=== PATIENT | female | born 1955 | race Two or more races ===

== ENCOUNTER 2017-11-30 08:49 | Observation (INO) | payer OTHER ==
--- NOTE | 2017-11-30 09:14 | RAD ---
Indication: Chest pain. Single frontal view of the chest performed at 0900 hours was reviewed. No prior study is available for comparison. No mediastinal shift is noted. Heart is of normal size and configuration. Lung villagomez appear clear. IMPRESSION: NO ACTIVE CARDIOPULMONARY DISEASE IS NOTED.
[2017-11-30 09:20] LABS: ABS Basophils 0.1 10^3/ul (0-0.2); ABS Eosinophils 0.2 10^3/ul (0-0.6); ABS Lymphocytes 1.7 10^3/ul (1.0-4.8); ABS Monocytes 0.3 10^3/ul (0-0.8); ABS Neutrophils 3.1 10^3/ul (1.5-7.7); ABS Nucleated RBC 0 10^3/ul; Eosinophil % 3.6 % (0-6); Hematocrit 38 % (35-47); Hemoglobin 13.1 g/dl (12.0-16.0); Lymphocyte % 31.6 % (25-47); Mean Corpuscular HGB Conc 34 g/dl (31-36); Mean Corpuscular Hemoglobin 30 pg (27-31); Mean Corpuscular Volume 87 fL (80-97); Mean Platelet Volume 8 um3 (7.4-10.4); Nucleated Red Blood Cells % 0; Platelet Count 281 10^3/ul (150-450); Red Blood Count 4.38 10^6/ul (4.0-5.4); Red Cell Distribution Width 13 % (10.5-15); White Blood Count 5.3 10^3/ul (3.5-10.8)
[2017-11-30 09:37] LABS: EGFR Non-African American 85.4 (>60)
[2017-11-30] MEDS ORDERED: Ondansetron INJ* 2 MG/ML VIAL IV PRN (13:22)
[2017-11-30] MEDS ORDERED: Acetaminophen TAB* 325 MG PO PRN (13:22)
[2017-11-30] MEDS: Heparin VIAL(*) 5000 UNITS/ML VIAL (FIVE THOUSAND) SUBCUT SCH ×2 (14:14→21:27)
[2017-11-30] MEDS ORDERED: NS 0.9% 500 ML* 500 ML IV ONE (15:45)
[2017-11-30] MEDS ORDERED: NS 0.9% 1000 ML* 500 ML IV ONE (16:30)
--- NOTE | 2017-11-30 21:27 | HP ---
CC: Dr. Alfaro * HISTORY AND PHYSICAL: DATE OF ADMISSION: 11/30/17 PRIMARY CARE PROVIDER: Dr. Alfaro. ATTENDING PHYSICIAN WHILE IN THE HOSPITAL: Eleazar Wang MD * (report dictated by Rajinder Bates NP). CHIEF COMPLAINT: Chest pain. HISTORY OF PRESENT ILLNESS: Mrs. Merlos is a 62-year-old female patient, she carries a history of osteoporosis, question of hyperlipidemia, she is no longer on medications, but she was on Lipitor at one point. She comes in to the ED today stating that intermittently for the last 3 weeks she has had chest discomfort. She says that she has been having pain, it has been non- exertional. It is mostly in the top part of her chest. Yesterday it did go down into her left arm and she did have tightness, but it was reproducible. She saw her primary last week. They felt that it could be musculoskeletal because she was able to reproduce the pain. The patient apparently had an outpatient chest x-ray which was presumably normal, but she was told that if she were to have the discomfort again that she should to go to the ER. Last night she had discomfort, tightness in the chest going down the arm. No associated nausea or shortness of breath. She says that she did feel lightheaded. Her checked her blood pressure, it was elevated at 167/ 107. She denied having any headache or visual disturbances or weakness to one side. There has been no recent cough, fevers, chills. No recent travel, leg pain or calf tenderness. The patient was concerned and went to the clinic today and they referred her to the hospital. She is not having chest discomfort now. She says she is feeling better. There has been no recent fevers chills, vomiting or diarrhea, but there was concern because there is a family history of heart disease, her brother in his 50s. The discomfort has been intermittent for the last 3 weeks and at times constant. She came in to the ED today. We were asked to evaluate for the chest pain. PAST MEDICAL HISTORY: Significant for: 1. Osteoporosis. 2. Laparoscopic cholecystectomy. HOME MEDICATIONS: According to her include, 1. Aspirin 162 mg daily. 2. She takes calcium 1 tablet daily. 3. Vitamin D 1 tablet daily. ALLERGIES TO MEDICATIONS: Include no known drug allergies. FAMILY HISTORY: Mother had a history of CVA. Father had emphysema. Brother at the age of 53 of an VT. SOCIAL HISTORY: The patient does not smoke, does not drink. 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 Surrogate decision maker is her . REVIEW OF SYSTEMS: There is no documented fever. She denied having any significant weight change. There was no double vision. She denies having any ear discharge. There is no rhinorrhea. There is no sore throat. No thyroid enlargement. She did admit to having chest pain as per my HPI. There is no orthopnea. No nocturnal dyspnea. There was no abdominal pain. There was no nausea, no vomiting. There is no dysuria. There is no frequency. There was no seizure, no loss of consciousness, no pruritus. Review of 14 systems completed, all others negative. PHYSICAL EXAMINATION GENERAL: At this time, Mrs. Merlos is a 62-year-old female patient, she is sitting in the ED stretcher. She does not appear to be in any acute distress. VITAL SIGNS: Blood pressure 145/84, pulse 69, respirations 18, O2 sat 98%, temperature 97. HEENT: Head atraumatic. Eyes: Sclerae anicteric and not pale. NECK: Supple. Throat: Oral mucosa appears to be moist. No oropharyngeal erythema. LUNGS: Clear to auscultation. No wheezes, rales or rhonchi. HEART: Sounds S1, S2. Regular rate and rhythm. No murmurs, rubs or gallops. ABDOMEN: Soft, flat. Nontender. Bowel sounds are present. EXTREMITIES: Pulses 2+ throughout. Moving all 4 extremities with 5/5 strength. NEUROLOGIC: The patient is awake, alert, oriented x3. Tongue midline. Manager Background are equal. No gross focal deficits. SKIN: Intact. LABORATORY DATA/DIAGNOSTIC STUDIES: WBC 5.3, RBC of 4.38, hemoglobin 13.1, hematocrit 38, platelet count of 281,000. D-dimer less than 200. Sodium 136, potassium 3.8, chloride 105, bicarb 26, BUN 15, creatinine of 0.70, glucose 102 , calcium 9.2, total bili 0.3, AST 18, ALT 16, alk-phos 76. Troponin 0, repeat troponin 0. Albumin 4.2. The patient did have a chest x-ray obtained today, which revealed no active cardiopulmonary disease. There was an EKG obtained today, which showed a normal sinus rhythm, rate of 72, no ST-elevation, no T-wave inversions were noted. Old medical records reviewed. ASSESSMENT AND PLAN: Mrs. Merlos is a 62-year-old female patient coming into the ED today with complaints of chest discomfort, which has been intermittent over the last 3 weeks, now it is more constant. We were asked to evaluate for admission. She will be admitted to the hospital under observation status for: 1. Chest pain: At this point, the pain does sound atypical, but at this point it has been intermittent for the last 3 weeks. It is concerning because now it is going into her left arm. I do think that we should admit her under observation, continue the aspirin. Lipid panel, A1c, third troponin, EKG in the morning and do a stress test and we will continue to follow. 2. Osteoporosis: Follow with her primary. 3. DVT prophylaxis: Heparin subcu has been ordered. 4. Code status: Full code. 5. Fluids, electrolytes, and nutrition: Heart healthy diet, then n.p.o. after midnight. TIME SPENT: Time spent on consult was 60 minutes, greater than half of the time was spent [id number] with the patient, obtaining my history and physical , the other half of the time was spent going over the plan of care with the patient and implementing the plan of care. I did discuss plan of care with my attending, Dr. Wang, who is in agreement. RAJINDER BATES, CHING [id number]/[facility] #: [id number] ZACH
--- NOTE | 2017-11-30 21:59 | ED ---
Griffin Krishna Tiffany, scribed for Estela Moser MD on 11/30/17 at 0924 . HPI Chest Pain - HPI Summary HPI Summary: The patient is a 62 year old F presenting to [facility] accompanied by with a chief complaint of upper chest pain since three weeks ago. The pain is described as an ache and radiates across the chest and to the left shoulder. The patient rates the pain 6/10 in severity. Symptoms aggravated by palpation. Symptoms alleviated by nothing. Patient reports intermittent episodes of dizziness. Patient denies shortness of breath, back pain and left shoulder pain. Patient reports that her blood pressure was high yesterday and that she felt dizzy. Patient has never had a stress test done. - History of Current Complaint Chief Complaint: EDChestPainROMI Time Seen by Provider: 11/30/17 09:00 Hx Obtained From: Patient Onset/Duration: Started Weeks Ago - 3 weeks, Still Present Timing: Constant Current Severity: Moderate Pain Intensity: 6 Pain Scale Used: 0-10 Numeric Chest Pain Location: Upper Sternal Chest Pain Radiates: Yes Chest Pain Radiates To:: Shoulder - Left shoulder Character: Dull/Aching Aggravating Factor(s): Other: - palpation Alleviating Factor(s): Nothing Associated Signs and Symptoms: Positive: Negative - shortness of breath, back pain and left shoulder pain., Dizziness - Intermittent episodes - Allergy/Home Medications Allergies/Adverse Reactions: Allergies Allergy/AdvReac Type Severity Reaction Status Date / Time No Known Allergies Allergy Verified 11/30/17 09:57 Home Medications: Home Medications Aspirin EC Low Dose* [Ecotrin EC Low Dose 81 MG*] 162 mg PO DAILY 11/30/17 [ History Confirmed 11/30/17] PMH/Surg Hx/FS Hx/Imm Hx Previously Healthy: Yes Endocrine/Hematology History: Denies: Hx Diabetes Cardiovascular History: Denies: Hx Hypertension - Surgical History Surgery Procedure, Year, and Place: Gallbladder removal Infectious Disease History: No Infectious Disease History: Denies: Traveled Outside the [place] in Last 30 Days - Family History Known Family History: Positive: Cardiac Disease - Brother passed at 53 from heart attack, Other - Mother passed from stroke - Social History Occupation: Employed Full-time - [employer] Lives: With Family - With Alcohol Use: None Hx Substance Use: No Substance Use Type: Reports: None Hx Tobacco Use: No Smoking Status (MU): Never Smoked Tobacco Review of Systems Positive: Chest Pain Negative: Shortness Of Breath Musculoskeletal: Negative - Back pain, left shoulder pain Neurological: Other - Intermittent episodes of dizziness All Other Systems Reviewed And Are Negative: Yes Physical Exam - Summary Physical Exam Summary: Appearance: Ill-appearing, moderate pain distress, Well-nourished Skin: Warm, color reflects adequate perfusion Head: Normal Head/Face inspection Eyes: Conjunctiva clear ENT: Normal inspection Neck: Supple, no nodes, no JVD. Respiratory: Lungs clear, Normal breath sounds, no respiratory distress Cardio: RRR, No murmur, pulses normal, brisk capillary refill Abdomen: soft, nontender Bowel sounds: present Musculoskeletal: Strength Intact/ ROM intact. No calf tenderness. No edema. Neuro: Alert, muscle tone normal, facial symmetry, speech normal, sensory/motor intact Psychological: Normal Triage Information Reviewed: Yes Vital Signs On Initial Exam: Initial Vitals Temp Pulse Resp BP Pulse Ox 97 F 72 16 152/89 100 11/30/17 08:50 11/30/17 08:50 11/30/17 08:50 11/30/17 08:50 11/30/17 08:50 Vital Signs Reviewed: Yes Diagnostics - Vital Signs Vital Signs Temp Pulse Resp BP Pulse Ox 11/30/17 08:50 97 F 72 16 152/89 100 - Laboratory Lab Results: Lab Results 11/30/17 11/30/17 11/30/17 Range/Units 09:09 09:09 09:09 WBC 5.3 (3.5-10.8) 10^3/ul RBC 4.38 (4.0-5.4) 10^6/ul Hgb 13.1 (12.0-16.0) g/dl Hct 38 (35-47) % MCV 87 (80-97) fL MCH 30 (27-31) pg MCHC 34 (31-36) g/dl RDW 13 (10.5-15) % Plt Count 281 (150-450) 10^3/ul MPV 8 (7.4-10.4) um3 Neut % (Auto) 57.7 (38-83) % Lymph % (Auto) 31.6 (25-47) % Hudson % (Auto) 5.9 (1-9) % Eos % (Auto) 3.6 (0-6) % Baso % (Auto) 1.2 (0-2) % Absolute Neuts (auto) 3.1 (1.5-7.7) 10^3/ul Absolute Lymphs (auto) 1.7 (1.0-4.8) 10^3/ul Absolute Monos (auto) 0.3 (0-0.8) 10^3/ul Absolute Eos (auto) 0.2 (0-0.6) 10^3/ul Absolute Basos (auto) 0.1 (0-0.2) 10^3/ul Absolute Nucleated RBC 0 10^3/ul Nucleated RBC % 0 ESR 42 H (0-30) mm/Hr D-Dimer, Quantitative < 200 (Less Than 230) ng/mL Sodium 136 (133-145) mmol/L Potassium 3.8 (3.5-5.0) mmol/L Chloride 105 (101-111) mmol/L Carbon Dioxide 26 (22-32) mmol/L Anion Gap 5 (2-11) mmol/L BUN 15 (6-24) mg/dL Creatinine 0.70 (0.51-0.95) mg/dL Est GFR ( Amer) 109.8 (>60) Est GFR (Non-Af Amer) 85.4 (>60) BUN/Creatinine Ratio 21.4 H (8-20) Glucose 102 H (70-100) mg/dL Calcium 9.2 (8.6-10.3) mg/dL Total Bilirubin 0.30 (0.2-1.0) mg/dL AST 18 (13-39) U/L ALT 16 (7-52) U/L Alkaline Phosphatase 76 (34-104) U/L Troponin I 0.00 (<0.04) ng/mL C-Reactive Protein 2.22 (< 5.00) mg/L Total Protein 7.6 (6.4-8.9) g/dL Albumin 4.2 (3.2-5.2) g/dL Globulin 3.4 (2-4) g/dL Albumin/Globulin Ratio 1.2 (1-3) 11/30/17 Range/Units 11:51 WBC (3.5-10.8) 10^3/ul RBC (4.0-5.4) 10^6/ul Hgb (12.0-16.0) g/dl Hct (35-47) % MCV (80-97) fL MCH (27-31) pg MCHC (31-36) g/dl RDW (10.5-15) % Plt Count (150-450) 10^3/ul MPV (7.4-10.4) um3 Neut % (Auto) (38-83) % Lymph % (Auto) (25-47) % Hudson % (Auto) (1-9) % Eos % (Auto) (0-6) % Baso % (Auto) (0-2) % Absolute Neuts (auto) (1.5-7.7) 10^3/ul Absolute Lymphs (auto) (1.0-4.8) 10^3/ul Absolute Monos (auto) (0-0.8) 10^3/ul Absolute Eos (auto) (0-0.6) 10^3/ul Absolute Basos (auto) (0-0.2) 10^3/ul Absolute Nucleated RBC 10^3/ul Nucleated RBC % ESR (0-30) mm/Hr D-Dimer, Quantitative (Less Than 230) ng/mL Sodium (133-145) mmol/L Potassium (3.5-5.0) mmol/L Chloride (101-111) mmol/L Carbon Dioxide (22-32) mmol/L Anion Gap (2-11) mmol/L BUN (6-24) mg/dL Creatinine (0.51-0.95) mg/dL Est GFR ( Amer) (>60) Est GFR (Non-Af Amer) (>60) BUN/Creatinine Ratio (8-20) Glucose (70-100) mg/dL Calcium (8.6-10.3) mg/dL Total Bilirubin (0.2-1.0) mg/dL AST (13-39) U/L ALT (7-52) U/L Alkaline Phosphatase (34-104) U/L Troponin I 0.00 (<0.04) ng/mL C-Reactive Protein (< 5.00) mg/L Total Protein (6.4-8.9) g/dL Albumin (3.2-5.2) g/dL Globulin (2-4) g/dL Albumin/Globulin Ratio (1-3) Result Diagrams: 11/30/17 09:09 11/30/17 09:09 Lab Statement: Any lab studies that have been ordered have been reviewed, and results considered in the medical decision making process. - Radiology CXR Radiology Interpretation Completed By: Radiologist - No active cardiopulmonary disease is noted. ED physician has reviewed this radiology report. - EKG 08:49 Cardiac Rate: NL EKG Rhythm: Sinus Rhythm - [address] Segment: Non-Specific Ectopy: None EKG Interpretation: nml AVIVCT, nml QTc, and nml axis EKG Comparison: Other - No priors to compare to. Chest Pain Course/Dx - Course Course Of Treatment: High blood pressure noted. Patient medications reviewed this visit. Normal EKG. No prior to compare. Normal CXR. Normal labs. Dr. Wang ( hospitalist) agreed to admit patient at 12:02. Patient will be admitted to [facility]. The patient is agreeable with this plan. Discharge - Discharge Plan Disposition: ADMITTED TO [facility] The documentation as recorded by the Griffin correa Tiffany accurately reflects the service I personally performed and the decisions made by Ehsan ragland Barbara J, MD.
[2017-12-01] MEDS: Heparin VIAL(*) 5000 UNITS/ML VIAL (FIVE THOUSAND) SUBCUT SCH ×2 (05:14→14:15)
[2017-12-01 05:50] LABS: ABS Basophils 0.1 10^3/ul (0-0.2); ABS Eosinophils 0.2 10^3/ul (0-0.6); ABS Lymphocytes 1.9 10^3/ul (1.0-4.8); ABS Monocytes 0.4 10^3/ul (0-0.8); ABS Neutrophils 2.8 10^3/ul (1.5-7.7); ABS Nucleated RBC 0 10^3/ul; Eosinophil % 4.6 % (0-6); Hematocrit 36 % (35-47); Hemoglobin 12.5 g/dl (12.0-16.0); Lymphocyte % 35.7 % (25-47); Mean Corpuscular HGB Conc 34 g/dl (31-36); Mean Corpuscular Hemoglobin 30 pg (27-31); Mean Corpuscular Volume 87 fL (80-97); Mean Platelet Volume 9 um3 (7.4-10.4); Nucleated Red Blood Cells % 0.1; Platelet Count 267 10^3/ul (150-450); Red Cell Distribution Width 13 % (10.5-15); White Blood Count 5.4 10^3/ul (3.5-10.8)
[2017-12-01 06:05] LABS: EGFR Non-African American 85.4 (>60)
[2017-12-01] MEDS ORDERED: Aspirin EC Low Dose* 81 MG TAB.EC PO SCH (09:00)
--- NOTE | 2017-12-01 12:37 | RAD ---
Edited for charges. INDICATION: Chest pain. COMPARISON: There are no prior studies available for comparison. Technique: A single day myocardial perfusion stress study was performed. Initially a resting study was performed. The patient was given an intravenous injection of 10.9 mCi of technetium 99m tetrofosmin and and the heart was imaged in multiple projections. The patient returned later in the day and under the direction of Dr. Rose, the patient was exercised to a peak heart rate of 164 beats per minute which was 102% of the maximum predicted heart rate. Subsequently the patient was given intravenous injection of 25.8 mCi of technetium 99m tetrofosmin and the heart was imaged in multiple projections. Images were reconstructed in the axial, sagittal and coronal planes and in a 3- D format. FINDINGS: There appears to be normal wall motion and myocardial thickening. The left ventricular ejection fraction was calculated to be 80%. No significant myocardial perfusion defects are seen after exercise or rest. IMPRESSION: NO EVIDENCE FOR INFARCT OR ISCHEMIA. ASSESSMENT: Low risk. Based on imaging criteria from ACC/AHA 2002 Guideline Update for the Management of Patients With Chronic Stable Angina Table 23. Noninvasive Risk Stratification. MTDD
[2017-12-01 12:42] VITALS: BP 152/89
--- NOTE | 2017-12-01 14:28 | PN ---
Subjective Date of Service: 12/01/17 Interval History: Patient seen and examined at bedside. Denies fever, chills, shortness of breath , chest discomfort, N/V/D. Pt's pain is reproducible with palpation to the upper chest, she denies any recent pushing, pulling or lifting that would have caused muscular strain. Tele: Sinus rhythm, rate 60-90's Family History: Unchanged from Admission Social History: Unchanged from Admission Past Medical History: Unchanged from Admission Objective Active Medications: Acetaminophen (Tylenol Tab*) 650 mg PO Q4H PRN Reason: FEVER/PAIN Aspirin (Aspirin Ec Low Dose*) 81 mg PO DAILY OSVALDO Heparin Sodium (Porcine) (Heparin Vial(*)) 5,000 units SUBCUT Q8HR OSVALDO Ondansetron HCl (Zofran Inj*) 4 mg IV Q6H PRN Reason: NAUSEA Vital Signs - 8 hr 12/01/17 12/01/17 07:56 12:42 Temperature 97.5 F 98.3 F Pulse Rate 69 95 Respiratory 16 16 Rate Blood Pressure 138/87 152/89 (mmHg) O2 Sat by Pulse 100 99 Oximetry Oxygen Devices in Use Now: None Appearance: NAD, sitting up in bed Ears/Nose/Mouth/Throat: Mucous Membranes Moist Respiratory: Symmetrical Chest Expansion and Respiratory Effort, Clear to Auscultation Cardiovascular: NL Sounds; No Murmurs; No JVD, RRR, - - Upper chest palpation, reproduces chest discomfort Abdominal: NL Sounds; No Tenderness; No Distention Extremities: No Edema Skin: No Rash or Ulcers Neurological: Alert and Oriented x 3, NL Muscle Strength and Tone Lines/Tubes/Other Access: Clean, Dry and Intact Peripheral IV - site benign Nutrition: Taking PO's Result Diagrams: 12/01/17 05:27 12/01/17 05:27 Additional Lab and Data: Assess/Plan/Problems-Billing Assessment: Ms. Merlos is a 62 yo female with PMH significant for - Patient Problems (1) Chest pain Code(s): R07.9 - CHEST PAIN, UNSPECIFIED SNOMED Code(s): 49946824 Comment: - Pain reproducible with palpation, suspect muscular - Low risk stress test - Cholesterol 187, LDL 102 - Continue ASA (2) Osteoporosis Code(s): M81.0 - AGE-RELATED OSTEOPOROSIS W/O CURRENT PATHOLOGICAL FRACTURE SNOMED Code(s): 17580500 Comment: - Follow with PCP (3) DVT prophylaxis Code(s): HXF0026 - SNOMED Code(s): 719809503 (4) Full code status Code(s): Z78.9 - OTHER SPECIFIED HEALTH STATUS SNOMED Code(s): 982598966 Status and Disposition: OBV. Stable for discharge to home today.
--- NOTE | 2017-12-02 16:36 | DS ---
CC: Dr. Alfaro * DISCHARGE SUMMARY: DATE OF ADMISSION: 11/30/17 DATE OF DISCHARGE: 12/01/17 ATTENDING PHYSICIAN: Dr. Esteban Eli * (dictated by Merle Wellington NP). PRIMARY CARE PROVIDER: Dr. Cassi Alfaro. PRIMARY DIAGNOSIS: Chest pain, suspect musculoskeletal. SECONDARY DIAGNOSIS: Osteoporosis. STUDIES WHILE IN THE HOSPITAL: 1. Chest x-ray on 11/30/17. Radiologist's impression: No active cardiopulmonary disease is noted. 2. Nuclear cardiac stress test on 12/01/17. Radiologist's impression: No evidence for infarct or ischemia. Assessment: Low risk. DISCHARGE MEDICATIONS: New home medication: Acetaminophen 650 mg oral every 4 hours as needed for fever or pain. Continued home medication: Aspirin 162 mg oral daily. HISTORY OF PRESENT ILLNESS/HOSPITAL COURSE: Ms. Merlos is a 62-year-old female with past medical history significant for osteoporosis and possible hyperlipidemia, no longer on medications, stating that she was on Lipitor at one point, who presented to the emergency room for intermittent chest discomfort over the past 3 weeks. The patient reports nonexertional chest pain mostly in the upper part of her chest. When lying down, she had pain in her arm and some tightness in her chest with the discomfort was reproducible. She saw her primary care provider, who felt that it was musculoskeletal as the pain was reproducible. She had an outpatient chest x- ray that was presumably normal and was told if she had that discomfort again to present to the emergency room. The night prior to admission, the patient developed discomfort, tightness in her chest going down her arm with no associated numbness or shortness of breath. She did report feeling lightheaded. Her checked her blood pressure, it was 167/107. She denied any headache or visual disturbances. No recent cold symptoms such as fever, chills, or cough. She denied any recent travel with leg pain or calf tenderness. She presented to the clinic today and was referred to the hospital for further evaluation. While in the emergency room, the patient was chest pain free. She had a brother who passed in his 50s. She had a chest x-ray with no acute findings. EKG with no ST abnormalities. Initial troponin of 0.00 and a repeat troponin of 0.00. D-dimer less than 200. Her other labs were unremarkable and the hospitalists were asked to evaluate the patient for admission. While in the hospital, the patient underwent a nuclear stress test showing a low risk. Her third troponin was 0.00. She had fasting lipids showing cholesterol of 187, slightly elevated LDL of 102. Hemoglobin A1c of 5.7. She had initial lactic acid of 2.4 and 1.5 on repeat. The patient remained chest pain free. Ms. Merlos is stable for discharged to home today. Vital signs are as follows: Temperature 98.3, heart rate 95, respiratory rate 16, O2 sat 99% on room air, blood pressure 152/89. DISCHARGE PLAN: Ms. Merlos will be discharged to home. Activity as tolerated. She has been encouraged to be on a heart healthy diet. In regards to her chest pain, I suspect this is muscular in nature as it is reproducible and she had a low risk stress test and negative troponins and no ST changes on her EKG. The patient was noted to be intermittently hypertensive during her stay with systolics up to the 150s, but mostly in the 120s to 140s systolically. This was discussed with the patient that her elevated LDL and she would like to make dietary changes and not going on statin at this time. The patient has been asked to return to the emergency room for any return of chest discomfort or shortness of breath. She should have a followup appointment with her primary care provider in the next week. Dr. Alfaro's office will call the patient with a followup appointment. She has been instructed to call the office if she does not hear from them in the next 48 hours to make an appointment. She has been asked to return to the emergency room for any chest pain or shortness of breath. POINTS OF DISCUSSION AT FOLLOWUP: Please encourage the patient to eat a heart healthy diet and continue to follow her lipids. She may need to be resumed on a statin. Also continue to follow her blood pressures as she has been intermittently hypertensive and may need antihypertensive. She would like to work on her diet first before going on any medications. This is a summarized report of a complex medical history and hospital stay. For further details, please see the entire medical record. TIME SPENT: Time for this discharge was approximately 50 minutes, greater than half of that was spent with the patient and her discussing discharge plans and instructions. CONDITION ON DISCHARGE: Stable. MERLE PANDEY, DERMATOLOGY PROCEDURAL PHYSICIAN [id number]/[facility] #: [id number] [facility]ITAL[facility]ign[facility]
== END 2017-12-01 14:45 | disposition home or self-care (01) ==
LOC: ED 08:49 → MEDTELE 12:02
PROVIDERS: ADMIT Internal Medicine; ATTEND Internal Medicine
DX: R07.9 Chest pain, unspecified (principal); R42 Dizziness and giddiness; E78.5 Hyperlipidemia, unspecified; M81.0 Age-related osteoporosis without current pathological fracture; Z90.49 Acquired absence of other specified parts of digestive tract; Z79.82 Long term (current) use of aspirin
CPT/HCPCS: 36415; 71045; 78452; 80048; 80053; 80061; 83036; 83605; 84484; 85025; 85379; 85652; 86140; 93005; 93017; 96374; 99284; A9270-GY; A9502; G0378; J1644